=== PATIENT | female | born 1930 | race Caucasian/White ===

== ENCOUNTER 2016-05-10 15:47 | Inpatient (IN) | payer OTHER, MEDICARE ==
[~2016-05-10] VITALS: Ht 157.5 cm; Wt 90.0 kg
[~2016-05-10 15:47] MED LIST: DIOVAN80 MG PO; TOPROL XL50 MG PO
[2016-05-10 16:56] LABS: CREATININE 0.5 mg/dL (0.6-1.3); POTASSIUM 3.1 mEq/L (3.7-5.4)
[2016-05-10 16:57] LABS: HEMATOCRIT 43.4 % (36.0-46.0); MCH 29.1 PG (29.0-34.0); MCHC 31.3 G/DL (30.0-36.0); MCV 92.9 FL (83-99); MEAN PLAT.VOLUME 10.4 uM^3 (9.5-12.4); PLATELET COUNT 349 K/uL (156-360); RBC DIS.WIDTH-CV 14.9 % (11.8-14.6); RBC DIS.WIDTH-SD 48.3 % (39-53); RED BLOOD COUNT 4.67 M/uL (3.80-5.20); WHITE BLOOD COUNT 14.4 K/uL (4.1-10.2)
[2016-05-10 17:02] LABS: CARBON DIOXIDE (BICARBONATE) 35.5 MEQ/L (20-31)
[2016-05-10 17:05] LABS: CHLORIDE 107 mEq/L (99-109); POTASSIUM 3.3 mEq/L (3.7-5.4); SODIUM 144 mEq/L (136-147)
[2016-05-10 17:07] LABS: GLUCOSE 158 mg/dL (70-99)
[2016-05-10 17:08] LABS: ANION GAP 12 MEQ/L (2-14)
[2016-05-10 17:09] LABS: TOTAL BILIRUBIN 0.6 mg/dL (0.0-1.0)
[2016-05-10 17:10] LABS: INTER. NORMALIZED RATIO 1.7; PROTHROMBIN TIME 17.5 (9.2-11.2); PTT 48.6 (25-32)
[2016-05-10 17:11] LABS: ALKALINE PHOSPHATASE 88 IU/L (3-129); GFR ESTIMATE (CALCULATED) > 59 mL/min/
[2016-05-10 17:12] LABS: UREA NITROGEN (BUN) 19 mg/dL (9-23)
[2016-05-10 17:18] LABS: TROP-I INTERPRETATION NEGATIVE; TROPONIN-I 0.02 ng/mL (0.0-0.30)
[2016-05-10 18:03] LABS: CREATINE KINASE 550 IU/L (1-294)
[2016-05-10 19:01] LABS: ADD MIUA? YES; BILIRUBIN NEGATIVE; BLOOD SMALL; COLOR YELLOW ((YELLOW)); GLUCOSE (STRIP) 250; KETONES NEGATIVE; LEUKOCYTES NEGATIVE; NITRITE NEGATIVE; PROTEIN (STRIP) 100; SPECIFIC GRAVITY 1.029 (1.000-1.030)
[2016-05-10 20:05] LABS: BACTERIA RARE; CASTS PRESENT /LPF; CELLULAR CASTS 0-5 /LPF; CRYSTALS NONE SEEN; EPITHELIAL CELLS RARE; MUCUS TRACE; RED BLOOD CELLS RARE /HPF (0-5); UCUL ADDED? NO; WHITE BLOOD CELLS RARE /HPF (0-5)
[2016-05-10 21:30] VITALS: BP 140/76
[2016-05-10 22:30] VITALS: BP 181/119
[2016-05-10 22:59] LABS: BASE EXCESS -0.1 mEq/L (-3 to +3); BICARBONATE 23.9 mEq/L (22-26); CARBOXY HGB 1.7 % (0-5); COMMENTS - BLOOD GASES C+; DEVICE PB840; FI02 100 %; MECHANICAL RATE 16 resp/min; METHEMOGLOBIN 1.3 % (0-1.5); MODE AC; PCO2 36 mm Hg (35-45); PO2 224 mm Hg (80-100); SITE LR; TIDAL VOLUME 500 ML; TOTAL RESP RATE 16 resp/min; pH 7.43 (7.35-7.45)
[2016-05-10 23:00] LABS: PEEP 5 CM/H20
[2016-05-10 23:03] LABS: METH RESISTANT S AUREUS PCR NEGATIVE (NEGATIVE)
[2016-05-10 23:05] LABS: PROBE CHECK PASS; SPECIMEN PROCESSING CONTROL PASS
[2016-05-10 23:06] LABS: EOSINOPHIL (%) 0 % (0-5); HEMATOCRIT 43.1 % (36.0-46.0); IMMATURE GRANULOCYTE (%) 0.2 % (0.0-0.7); IMMATURE GRANULOCYTE COUNT 0.5 K/uL; LYMPHOCYTE COUNT 0.4 K/uL (1.0-2.8); MCH 29.5 PG (29.0-34.0); MCV 92.1 FL (83-99); MEAN PLAT.VOLUME 10.4 uM^3 (9.5-12.4); MONOCYTE (%) 2.9 % (3-12); MONOCYTE COUNT 0.6 K/uL (0-0.8); PLATELET COUNT 424 K/uL (156-360); RBC DIS.WIDTH-CV 14.9 % (11.8-14.6); RBC DIS.WIDTH-SD 48.5 % (39-53); RED BLOOD COUNT 4.68 M/uL (3.80-5.20)
[2016-05-10 23:12] LABS: CHLORIDE 113 mEq/L (99-109); MAGNESIUM 1.7 mg/dL (1.3-2.7); POTASSIUM 3.6 mEq/L (3.7-5.4); SODIUM 146 mEq/L (136-147)
[2016-05-10 23:14] LABS: GLUCOSE 152 mg/dL (70-99)
[2016-05-10 23:15] LABS: ANION GAP 12 MEQ/L (2-14)
[2016-05-10 23:18] LABS: GFR ESTIMATE (CALCULATED) > 59 mL/min/; UREA NITROGEN (BUN) 18 mg/dL (9-23)
[2016-05-10 23:20] LABS: CREATINE KINASE 516 IU/L (1-294)
[2016-05-10 23:25] LABS: TROP-I INTERPRETATION NEGATIVE; TROPONIN-I 0.12 ng/mL (0.0-0.30)
[2016-05-10 23:30] VITALS: BP 85/57
[2016-05-10 23:57] VITALS: BP 84/61
[2016-05-11] VITALS (7 sets, daily range): BP systolic 50–165; BP diastolic 23–127
[2016-05-11 00:45] LABS: POINT-OF-CARE METER ID UU13113748
[2016-05-11 01:56] LABS: TRIGLYCERIDES 56 MG/DL (Normal: <150)
[2016-05-11 05:12] LABS: HEMATOCRIT 40.1 % (36.0-46.0); MCH 28.3 PG (29.0-34.0); MCHC 30.7 G/DL (30.0-36.0); MCV 92.2 FL (83-99); MEAN PLAT.VOLUME 10.4 uM^3 (9.5-12.4); PLATELET COUNT 458 K/uL (156-360); RBC DIS.WIDTH-CV 14.9 % (11.8-14.6); RBC DIS.WIDTH-SD 50.1 % (39-53); RED BLOOD COUNT 4.35 M/uL (3.80-5.20); WHITE BLOOD COUNT 17.6 K/uL (4.1-10.2)
[2016-05-11 05:30] LABS: INTER. NORMALIZED RATIO 1.4; PROTHROMBIN TIME 14.3 (9.2-11.2); PTT 44.1 (25-32)
[2016-05-11 05:31] LABS: TROP-I INTERPRETATION POSITIVE; TROPONIN-I 0.93 ng/mL (0.0-0.30)
[2016-05-11 05:41] LABS: ANION GAP 10 MEQ/L (2-14); CHLORIDE 110 MEQ/L (99-109); GFR ESTIMATE (CALCULATED) > 59 mL/min/; SAMPLE HEMOLYSIS CHECK 1; SAMPLE ICTERIC CHECK 0; SAMPLE LIPEMIA CHECK 0; SODIUM 143 MEQ/L (136-147); UREA NITROGEN (BUN) 18 mg/dL (9-23)
[2016-05-11 05:42] LABS: GLUCOSE 77 mg/dL (70-99)
[2016-05-11 07:33] LABS: Estimated Average Glucose 114 mg/dL (70-123); HEMOGLOBIN A1c (GLYCOHEMOGLOB) 5.6 % HGB (Below 5.7)
[2016-05-11 11:01] LABS: CHLORIDE 113 mEq/L (99-109); MAGNESIUM 1.8 mg/dL (1.3-2.7); POTASSIUM 4.2 mEq/L (3.7-5.4); SODIUM 143 mEq/L (136-147)
[2016-05-11 11:04] LABS: ANION GAP 9 MEQ/L (2-14)
[2016-05-11 11:05] LABS: GLUCOSE 130 mg/dL (70-99)
[2016-05-11 11:07] LABS: GFR ESTIMATE (CALCULATED) > 59 mL/min/; UREA NITROGEN (BUN) 20 mg/dL (9-23)
[2016-05-11 11:16] LABS: TROP-I INTERPRETATION POSITIVE
[2016-05-11 11:23] LABS: TROPONIN-I 2.32 ng/mL (0.0-0.30)
[2016-05-11 12:39] LABS: POINT-OF-CARE METER ID UU13113748
== END 2016-05-11 18:49 | DRG 922 ==
LOC: EME 15:47 → EDBD 15:47 → EDOF 19:07 → 4WEST 19:07
PROVIDERS: Emergency Medicine; Internal Medicine Critical Care Medicine
PROC: 5A1935Z Respiratory Ventilation, Less than 24 Consecutive Hours (ICD-10-PCS; principal; 2016-05-10)
PROC: 0BH17EZ Insertion of Endotracheal Airway into Trachea, Via Natural or Artificial Opening (ICD-10-PCS; principal; 2016-05-10)
PROC: 06HM33Z Insertion of Infusion Device into Right Femoral Vein, Percutaneous Approach (ICD-10-PCS; principal; 2016-05-10)
PROC: 5A12012 Performance of Cardiac Output, Single, Manual (ICD-10-PCS; 2016-05-11)
DX: T68.XXXA Hypothermia, initial encounter (principal); J96.00 Acute respiratory failure, unspecified whether with hypoxia or hypercapnia; R57.9 Shock, unspecified; R40.20 Unspecified coma; I46.9 Cardiac arrest, cause unspecified; J18.9 Pneumonia, unspecified organism; Z51.5 Encounter for palliative care; E86.0 Dehydration; E87.2 Acidosis; T33.90XA Superficial frostbite of unspecified sites, initial encounter; X31.XXXA Exposure to excessive natural cold, initial encounter; I49.3 Ventricular premature depolarization; I49.1 Atrial premature depolarization; B37.2 Candidiasis of skin and nail; I87.8 Other specified disorders of veins; D72.829 Elevated white blood cell count, unspecified; I10 Essential (primary) hypertension; M19.90 Unspecified osteoarthritis, unspecified site
CPT/HCPCS: 36600; 36620; 70450; 71010; 80047; 80048; 80048 91; 80053; 81003; 82550 91; 82803; 82948; 83036; 83605; 83735; 83880; 84100; 84443; 84478; 84484; 85025; 85027; 85610; 85730; 87040; 87070; 87077; 87205; 87641; 87801; 93005; 94002; 94003; 99281; 99285; G0008; J0171; J0456; J0692; J0696; J1630; J1650; J1815; J2060; J2175; J2270; J2704; J3370; J3475; J7030; J7050; J7120; S0028